=== PATIENT | female | born 1935 | race Caucasian/White ===

== ENCOUNTER 2017-10-29 10:00 | Day surgery (SDC) | payer MEDICARE, OTHER ==
[2017-10-28 12:30] LABS: ABSOLUTE EOSINOPHILS # (AUTO) 0.1 10^3/uL (0.0-0.6); ABSOLUTE LYMPHOCYTES (AUTO) 2.2 10^3/uL (0.5-4.7); ABSOLUTE MONOCYTES (AUTO) 0.4 10^3/uL (0.1-1.4); ABSOLUTE NEUT (AUTO) 4.2 10^3/uL (1.7-8.2); BASOPHILS % (AUTO) 0.7 % (0-2); EOSINOPHILS % (AUTO) 1.8 % (0-6); HEMATOCRIT 34.8 % (36.0-47.0); HEMOGLOBIN 11.8 g/dL (12.0-15.5); HGB HCT DIFFERENCE 0.6; LYMPHOCYTES % (AUTO) 31.8 % (13-45); MEAN CORPUSCULAR HEMOGLOBIN 29.9 pg (27.0-33.4); MEAN CORPUSCULAR HGB CONC 33.8 g/dL (32.0-36.0); MEAN CORPUSCULAR VOLUME 88 fl (80-97); MONOCYTES % (AUTO) 6.1 % (3-13); RED BLOOD COUNT 3.94 10^6/uL (3.72-5.28); RED CELL DISTRIBUTION WIDTH 14.3 % (11.5-14.0); SEGMENTED NEUTROPHILS % (AUTO) 59.6 % (42-78)
--- NOTE | 2017-10-28 12:38 | EKG REPORT ---
SEVERITY:- NORMAL ECG - SINUS RHYTHM : Confirmed by: Checo Ramirez 28-Oct-2017 12:36:53
[2017-10-28 12:49] LABS: ANION GAP 14 (5-19); BLOOD UREA NITROGEN 23 mg/dL (7-20); CALCIUM 10.5 mg/dL (8.4-10.2); CARBON DIOXIDE 26 mmol/L (22-30); CHLORIDE 104 mmol/L (98-107); CREATININE RESULT 1.12 mg/dL (0.52-1.25); GLUCOSE 92 mg/dL (75-110); POTASSIUM 4.6 mmol/L (3.6-5.0); SODIUM 143.7 mmol/L (137-145)
[~2017-10-29 10:00] MED LIST: LACTATED RINGERS 1000 ML IV PRN; LIDOCAINE 0.5% INJ-PF (5 MG/ML) 50 ML SDV SUBCUT PRN
[2017-10-29] MEDS ORDERED: METOPROLOL SUCCINATE 25 MG TAB.SR.24H PO ONE (11:30)
[2017-10-29] MEDS ORDERED: MIDAZOLAM 2 MG/2 ML INJ ONE (12:01)
[2017-10-29] MEDS ORDERED: LIDOCAINE 2% INJ-PF (20 MG/ML) 10 ML AMPUL ONE (12:01)
[2017-10-29] MEDS ORDERED: PROPOFOL INJ 200 MG/20 ML VIAL IV ONE (12:01)
[2017-10-29] MEDS ORDERED: GLUCAGON,HUMAN RECOMB 1 MG INJ ONE (12:19)
[2017-10-29] MEDS ORDERED: OXYCODONE-ACETAMINOPHEN 5-325 MG TABLET PO PRN ×2 (12:28)
[2017-10-29] MEDS ORDERED: DIPHENHYDRAMINE HCL 50 MG/ML VIAL IV PRN (12:28)
[2017-10-29] MEDS ORDERED: MORPHINE SULFATE 10 MG/ML INJ IV PRN (12:28)
[2017-10-29] MEDS ORDERED: ONDANSETRON HCL INJ/PF 4 MG/2 ML SDV IV PRN (12:28)
[2017-10-29] MEDS ORDERED: MEPERIDINE HCL/PF INJ 25 MG/1 ML DISP.SYRIN IV PRN (12:28)
[2017-10-29] MEDS ORDERED: PROMETHAZINE HCL INJ 25 MG/1 ML VIAL IV PRN ×2 (12:28)
[2017-10-29] MEDS ORDERED: FENTANYL CITRATE INJ/PF 100 MCG/2 ML AMPUL IV PRN ×3 (12:28)
[2017-10-29 14:03] LABS: ABSOLUTE EOSINOPHILS # (AUTO) 0.1 10^3/uL (0.0-0.6); ABSOLUTE LYMPHOCYTES (AUTO) 1.8 10^3/uL (0.5-4.7); ABSOLUTE MONOCYTES (AUTO) 0.7 10^3/uL (0.1-1.4); ABSOLUTE NEUT (AUTO) 7.8 10^3/uL (1.7-8.2); BASOPHILS % (AUTO) 0.3 % (0-2); EOSINOPHILS % (AUTO) 1.1 % (0-6); HEMATOCRIT 32.4 % (36.0-47.0); HEMOGLOBIN 10.8 g/dL (12.0-15.5); LYMPHOCYTES % (AUTO) 17.6 % (13-45); MEAN CORPUSCULAR HEMOGLOBIN 29.4 pg (27.0-33.4); MEAN CORPUSCULAR HGB CONC 33.5 g/dL (32.0-36.0); MEAN CORPUSCULAR VOLUME 88 fl (80-97); MONOCYTES % (AUTO) 6.3 % (3-13); RED BLOOD COUNT 3.69 10^6/uL (3.72-5.28); RED CELL DISTRIBUTION WIDTH 13.9 % (11.5-14.0); SEGMENTED NEUTROPHILS % (AUTO) 74.7 % (42-78); WHITE BLOOD COUNT 10.4 10^3/uL (4.0-10.5)
--- NOTE | 2017-10-29 14:36 | HISTORY AND PHYSICAL E ---
History and Physical NAME: SY HEALY : 1935 AGE: 82Y ADMITTED: 10/29/2017 ROOM: CONTINUATION The patient has history of anemia, history of polyps, mild diverticulosis, breast cancer. She presented for a colon exam. MEDICATIONS: 1. Aciphex. 2. Iron. 3. Simvastatin. 4. Januvia. 5. Ecotrin. 6. Diovan. 7. Lasix. 8. Valsartan. 9. Tramadol. 10. Tamoxifen. 11. Synthroid. 12. Metoprolol. 13. Mobic. 14. Magnesium oxide. She is being followed by [facility]. The patient does have anemia of chronic disease. Patient presented for colon exam. She is scheduled for colonoscopy to be done in the OR. PHYSICAL EXAMINATION: GENERAL: Pleasant, alert, oriented. VITAL SIGNS: Blood pressure 150/70, pulse 80, respirations 20, temp 98. HEAD, EYES, EARS, NOSE, THROAT: Normal. ABDOMEN: Soft. NEUROLOGIC: Negative. PLAN: Exam scheduled tomorrow for the OR on 10/29. DICTATING PHYSICIAN: RONNI CARPENTER M.D. [id number] PHY#: [id number] ID: [id number] JOB#: [id number] ACCT: [id number] cc:RONNI CARPENTER M.D. >
--- NOTE | 2017-10-29 14:36 | HISTORY AND PHYSICAL E ---
History and Physical NAME: SY HEALY : 1935 AGE: 82Y ADMITTED: 10/29/2017 ROOM: CHIEF COMPLAINT: Patient presented regarding colon exam, colon screening, history of colorectal polyps. HISTORY OF PRESENT ILLNESS: Patient referred to us for colon screening, history of polyps. Patient presents as a referral from [facility]. The patient is being seen by Dr. Keon Franklin as well. The patient has high-grade DCIS lesion with close margins. The patient presented at this time regarding colon exam. She did have a left breast lesion. 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 Patient did have biopsies of the left breast, high-grade carcinoma in-situ. Patient did have colonoscopy, with strong family history of colon cancer, paternal grandfather. Her primary is Dr. Urbano. She did have blood in the stool in 2011. We did colonoscopy on her. She is to be considered for repeat in 2 years. She did have a benign-looking polyp in the ascending colon, scattered diverticulosis, 2-mm polyp in the rectum. She is being followed by Dr. Haynes, Dr. Franklin. Colonoscopy in 2011: A 3-mm sessile benign polyp, flat in the mid-ascending colon. The patient needs to have followup colonoscopy. She did have focal adenomatous hyperplastic changes in the rectal polyp. Patient did have upper scope that showed benign gastric polyps. In 2012, recent colonoscopy showed focal adenoma in the rectum. She is being seen by Dr. Farhad Conteh and Dr. Bagley. We did another colon in 2014 that showed 1 or 2 diverticula in the rectosigmoid junction, external hemorrhoids, 2-mm polyp in her sigmoid colon. This was in 2014, when she was 79 years old. PAST MEDICAL HISTORY: 1. Diabetes. 2. Thyroid disorder. 3. Left breast lesion. 4. Anemia. SURGERIES: Patient did have breast biopsy. She did have left lumpectomy. Partial knee replacement. Tonsillectomy. MEDICATIONS: 1. Simvastatin. 2. Metformin. 3. Iron. 4. Magnesium. 5. Diovan. 6. Enteric-coated aspirin. 7. Januvia. 8. Synthroid. 9. Glyburide. 10. Omeprazole. 11. Tamoxifen 10 mg. SOCIAL HISTORY: Does not smoke. Drinks rarely. REVIEW OF SYSTEMS: CARDIAC: Hypertension. Irregular heartbeat. ENDOCRINE: Negative. GASTROINTESTINAL: Left lower quadrant abdominal pain. Anemia. FAMILY HISTORY: Father is alive and well. Her mom is alive and well; she has congestive heart failure. She does have an aunt who has colon cancer. PHYSICAL EXAMINATION: VITAL SIGNS: Blood pressure 110/60, pulse 80, respirations 20, temp is 98. HEAD, EYES, EARS, NOSE AND THROAT: Normal. NECK: Supple. CARDIOVASCULAR: Normal. LUNGS: Clear. ABDOMEN: Soft. NEUROLOGIC: Negative. END OF DICTATION DICTATING PHYSICIAN: RONNI CARPENTER M.D. [id number] [id number] PHY#: [id number] ID: [id number] JOB#: [id number] ACCT: [id number] cc:RONNI CARPENTER M.D. >
--- NOTE | 2017-10-29 14:42 | DISCHARGE SUMMARY E ---
Discharge Summary NAME: SY HEALY : 1935 AGE: 82Y ADMITTED: 10/29/2017 DISCHARGED: 10/29/2017 HOSPITAL COURSE: The patient is an 82-year-old female who presented with rectal bleeding. Colonoscopy done in the OR today shows no bleeding, mild external hemorrhoids, sigmoid benign diminutive polyp and diverticulosis. DISCHARGE PLAN: Soft diet. Lab studies. Resume all medicines. Hold aspirin, nonsteroidal. Awaiting lab studies. DICTATING PHYSICIAN: RONNI CARPENTER M.D. [id number] [id number] PHY#: [id number] ID: [id number] JOB#: [id number] ACCT: [id number] cc:[facility] RONNI CARPENTER M.D. >
--- NOTE | 2017-10-29 14:44 | OPERATIVE REPORT E ---
Operative Report NAME: SY HEALY : 1935 AGE: 82Y DATE OF SURGERY: 10/29/2017 ROOM: PREOPERATIVE DIAGNOSIS: Rectal bleeding. POSTOPERATIVE DIAGNOSES: 1. External hemorrhoids, mild. 2. Sigmoid and descending colon diverticulosis. 3. Diminutive polyp, 2 mm, sigmoid, too small to biopsy. PROCEDURE: Colonoscopy to the cecum. SURGEON: RONNI CARPENTER M.D. ANESTHESIA: Done in the OR with anesthesia standby. PROCEDURE: Rectal exam: External hemorrhoids. Sigmoid redundant 2 mm sigmoid polyp, benign, too small to biopsy. Descending colon diverticulosis. Transverse colon normal. Descending colon normal. Cecum normal. There was brown liquidy stool in the cecum. No active bleeding and no large or significant polyps seen. Cecum, ascending essentially no polyps, no bleeding. Transverse colon normal. Descending and sigmoid diverticulosis, diminutive polyp and external hemorrhoids. DISCHARGE PLAN: 1. Soft diet. 2. Hold aspirin. 3. Baseline CBC and CEA. 4. Patient is to see us in the office in the next few days. DICTATING PHYSICIAN: RONNI CARPENTER M.D. [id number] 1250 PHY#: [id number] ID: [id number] JOB#: [id number] ACCT: [id number] cc:[facility] RONNI CARPENTER M.D. >
[2017-10-29 14:51] LABS: CARCINOEMBRYONIC ANTIGEN 1.7 ng/mL (<3.0)
[2017-10-29 14:55] LABS: FERRITIN 52.5 ng/mL (11.1-264.0)
[2017-10-29 15:26] LABS: FOLATE > 20.00 ng/mL (>2.76)
[2017-10-29 17:14] VITALS: BP 155/66
== END 2017-10-29 14:55 | disposition home or self-care (01) ==
LOC: OROUT 10:00
PROVIDERS: ATTEND Specialist
PROC: 0DJD8ZZ Inspection of Lower Intestinal Tract, Via Natural or Artificial Opening Endoscopic (ICD-10-PCS; principal; 2017-10-29 12:00)
DX: K62.5 Hemorrhage of anus and rectum (principal); K64.4 Residual hemorrhoidal skin tags; K57.30 Diverticulosis of large intestine without perforation or abscess without bleeding; D12.5 Benign neoplasm of sigmoid colon; Z79.899 Other long term (current) drug therapy; Z79.1 Long term (current) use of non-steroidal anti-inflammatories (NSAID); Z79.82 Long term (current) use of aspirin; Z79.84 Long term (current) use of oral hypoglycemic drugs; D64.9 Anemia, unspecified; E11.9 Type 2 diabetes mellitus without complications; E07.9 Disorder of thyroid, unspecified; I10 Essential (primary) hypertension; C50.912 Malignant neoplasm of unspecified site of left female breast; Z79.810 Long term (current) use of selective estrogen receptor modulators (SERMs); Z96.659 Presence of unspecified artificial knee joint; D63.0 Anemia in neoplastic disease
CPT/HCPCS: 45378; 93005; 36415 ×2; 82962; 82607; 82378; 82728; 82746; 83540; 83550; 85025 ×2; 85045; 80048; 93010; J2250; J1610; A9270; J2704; J3490; 810